=== PATIENT | female | born 1930 | race Caucasian/White ===

== ENCOUNTER 2020-09-25 14:06 | Emergency (ER) | payer MEDICARE ==
[~2020-09-25] VITALS: Ht 160 cm; Wt 60.5 kg
[~2020-09-25 14:06] MED LIST: ASPI-1009 PO; LEVO50TA8 PO; MECL-159 PO; OMEP-50 PO; PERI4TAB PO; TRAV5DRO RIGHTEYE
[2020-09-25 16:05] VITALS: BP 161/85
[2020-09-29] MEDS ORDERED: PANT40TA54 PO (10:33)
[2020-09-29] MEDS ORDERED: NYST1000 PO (10:36)
[2020-09-29] MEDS ORDERED: ONDA4TAB6 PO (11:52)
== END 2020-09-25 16:17 | disposition home or self-care (01) ==
LOC: ER 14:06
DX: M25.551 Pain in right hip (principal); M25.511 Pain in right shoulder; I25.10 Atherosclerotic heart disease of native coronary artery without angina pectoris; I10 Essential (primary) hypertension; E03.9 Hypothyroidism, unspecified; Z98.890 Other specified postprocedural states; Z60.2 Problems related to living alone; Z88.1 Allergy status to other antibiotic agents; Z88.0 Allergy status to penicillin; Z88.2 Allergy status to sulfonamides; Z88.8 Allergy status to other drugs, medicaments and biological substances; Z79.82 Long term (current) use of aspirin; Z79.899 Other long term (current) drug therapy; W05.0XXA Fall from non-moving wheelchair, initial encounter; Y93.89 Activity, other specified; Y92.89 Other specified places as the place of occurrence of the external cause; Y99.8 Other external cause status
CPT/HCPCS: 73030; 73502; 99284

== ENCOUNTER 2021-02-26 10:17 | Inpatient (IN) | payer MEDICARE ==
[~2021-02-26] VITALS: Ht 312.4 cm; Wt 56.4 kg
[~2021-02-26 10:17] MED LIST changes: -OMEP-50 PO; +ONDA4TAB6 PO; +PANT40TA54 PO
[2021-02-26] MEDS ORDERED: normal saline 1000ML IV soln IVB ONE (10:30)
--- NOTE | 2021-02-26 10:35 | NUR ---
PT FOLLOWS COMMANDS APPROPRIATLY. UNABLE TO PUFF CHEEKS OR RAISE EYEBROWS. SENSATION IN TACT, NO WEAKNESS OR ATAXIA NOTED. NO DIFFICULTY IN SPEECH NOTED, NO FACIAL DROOP NOTED.
[2021-02-26 11:00] LABS: BASOPHILS % (AUTO) 0.2 % (0-1); EOSINOPHILS % (AUTO) 0.6 % (0-6); HEMATOCRIT 44.2 % (35.0-45.0); HEMOGLOBIN 14.5 g/dl (12.0-16.0); LYMPHOCYTES # (AUTO) 0.7 X10'3 (1.1-4.8); LYMPHOCYTES % (AUTO) 13.8 % (21-51); MEAN CORPUSCULAR HEMOGLOBIN 27.4 PG (27.0-31.0); MEAN CORPUSCULAR HGB CONC 32.9 g/dL (33.0-36.5); MEAN CORPUSCULAR VOLUME 83.5 FL (78-98); MEAN PLATELET VOLUME 7.7 FL (7.4-10.4); MONOCYTES % (AUTO) 20.8 % (2-12); NEUTROPHILS # (AUTO) 3.1 X10'3 (1.8-7.7); NEUTROPHILS % (AUTO) 64.6 % (42-75); PLATELET COUNT 267 X10'3 (140-440); RED BLOOD COUNT 5.29 X10'6 (4.20-5.60); RED CELL DISTRIBUTION WIDTH 14.8 % (11.5-14.5); WHITE BLOOD COUNT 4.8 X10'3 (4.5-11.0)
[2021-02-26 11:04] LABS: PARTIAL THROMBOPLASTIN TIME 29 SECONDS (22-32)
[2021-02-26 11:05] LABS: ALANINE AMINOTRANSFERASE 16 U/L (12-78); ALBUMIN 4.6 G/DL (3.4-5.0); ALBUMIN/GLOBULIN RATIO 1.2 (1.1-1.5); ALKALINE PHOSPHATASE 94 IU/L (46-116); ANION GAP 14 (8-16); ASPARTATE AMINO TRANSFERASE 20 U/L (10-37); BILIRUBIN,TOTAL 0.6 MG/DL (0.1-1.0); BLOOD UREA NITROGEN 17 MG/DL (7-18); BUN/CREATININE RATIO 13.9 (6.6-38.0); CALCIUM 9.9 MG/DL (8.5-10.1); CHLORIDE 97 MMOL/L (99-107); CREATININE 1.22 MG/DL (0.40-0.90); GLUCOSE 93 MG/DL (70-104); POTASSIUM 4.4 MMOL/L (3.5-5.1); SODIUM 138 MMOL/L (135-145); TOTAL CARBON DIOXIDE 26.8 MMOL/L (24-32); TOTAL PROTEIN 8.6 G/DL (6.4-8.2); eGFR 42 ML/MIN
[2021-02-26 11:12] LABS: MAGNESIUM 2.7 MG/DL (1.5-2.4)
[2021-02-26] MEDS ORDERED: acetaminophen 325mg tablet PO PRN ×2 (12:15)
[2021-02-26] MEDS ORDERED: magnesium hydroxide 30ml (MOM) UD suspension PO PRN (12:15)
[2021-02-26] MEDS ORDERED: ondansetron/PF 4mg/2ml inj IV PRN (12:15)
[2021-02-26] MEDS ORDERED: mag hydrox/Alum hydrox/simeth 30ml oral suspension PO PRN (12:15)
[2021-02-26] MEDS ORDERED: morphine 2 MG/ML inj. syringe IV PRN ×2 (12:15)
[2021-02-26] MEDS ORDERED: levetiracetam inj 1,000 MG in normal saline 100ml IV soln 90 ML IV SCH (12:22)
[2021-02-26] MEDS ORDERED: levetiracetam 250mg tablet PO SCH (12:28)
[2021-02-26] MEDS ORDERED: LEVO75TA7 PO (12:47)
[2021-02-26] MEDS ORDERED: PANT-47 PO (12:48)
[2021-02-26] MEDS ORDERED: levetiracetam inj 1,000 MG in normal saline 100ml IV soln 90 ML IV ONE (13:15)
--- NOTE | 2021-02-26 13:58 | NUR ---
RONNA NELSON ([facility]) [phone], [phone]
[2021-02-26] MEDS: dextrose 5%-1/2 normal saline 1,000 ML IV SCH ×2 (14:13→22:50)
[2021-02-26] MEDS: docusate sod 100mg capsule PO SCH (19:17)
[2021-02-26] MEDS: levetiracetam 250mg tablet PO SCH (19:18)
[2021-02-27] VITALS (9 sets, daily range): BP systolic 128–184; BP diastolic 66–94
--- NOTE | 2021-02-27 06:15 | NUR ---
Received report from Jillian MISHRA Traveler.
--- NOTE | 2021-02-27 06:38 | NUR ---
Problems reprioritized. Patient report given, questions answered & plan of care reviewed with TAD Gan.
[2021-02-27 07:17] LABS: BASOPHILS % (AUTO) 0.3 % (0-1); EOSINOPHILS # (AUTO) 0.1 X10'3 (0-0.9); EOSINOPHILS % (AUTO) 1.2 % (0-6); HEMATOCRIT 41.4 % (35.0-45.0); HEMOGLOBIN 13.6 g/dl (12.0-16.0); LYMPHOCYTES % (AUTO) 18.3 % (21-51); MEAN CORPUSCULAR HEMOGLOBIN 27.6 PG (27.0-31.0); MEAN CORPUSCULAR HGB CONC 32.7 g/dL (33.0-36.5); MEAN CORPUSCULAR VOLUME 84.3 FL (78-98); MEAN PLATELET VOLUME 8.1 FL (7.4-10.4); MONOCYTES # (AUTO) 1.5 X10'3 (0-0.9); MONOCYTES % (AUTO) 27.4 % (2-12); NEUTROPHILS # (AUTO) 2.8 X10'3 (1.8-7.7); NEUTROPHILS % (AUTO) 52.8 % (42-75); PLATELET COUNT 232 X10'3 (140-440); RED BLOOD COUNT 4.92 X10'6 (4.20-5.60); RED CELL DISTRIBUTION WIDTH 14.9 % (11.5-14.5); WHITE BLOOD COUNT 5.3 X10'3 (4.5-11.0)
[2021-02-27 07:37] LABS: ALBUMIN 3.4 G/DL (3.4-5.0); ANION GAP 11 (8-16); BLOOD UREA NITROGEN 16 MG/DL (7-18); BUN/CREATININE RATIO 16.8 (6.6-38.0); CHLORIDE 100 MMOL/L (99-107); CREATININE 0.95 MG/DL (0.40-0.90); GLUCOSE 79 MG/DL (70-104); POTASSIUM 4.4 MMOL/L (3.5-5.1); SODIUM 133 MMOL/L (135-145); TOTAL CARBON DIOXIDE 21.8 MMOL/L (24-32); eGFR 56 ML/MIN
[2021-02-27] MEDS: levetiracetam 250mg tablet PO SCH ×2 (08:08→20:14)
[2021-02-27] MEDS: docusate sod 100mg capsule PO SCH ×2 (08:08→20:15)
[2021-02-27] MEDS ORDERED: LEVE250T PO (08:51)
[2021-02-27 09:07] LABS: TOTAL CELLS COUNTED 100
[2021-02-27 09:08] LABS: PLATELET ESTIMATE NORMAL
--- NOTE | 2021-02-27 11:47 | NUR ---
wrong assessment on patient- mv
--- NOTE | 2021-02-27 13:04 | NUR ---
PAGER ID: [phone] MESSAGE: Poppy Robbins [id number]-Pt wants to stay one more day, could I restart her on fluids? she is eating about 30% of her food. NS? Daughter bringing her dentures. Could we also give her home meds for HTN? 165/79 HR 78 RR 14.Thank you. Elvia [facility] [id number]
--- NOTE | 2021-02-27 18:47 | NUR ---
Problems reprioritized. Patient report given, questions answered & plan of care reviewed with Jose Luis MISHRA Traveler.
[2021-02-27] MEDS: meclizine 12.5mg tablet PO SCH (20:13)
[2021-02-27] MEDS ORDERED: latanoprost 0.005% 2.5ml ophthalmic drops RIGHTEYE SCH (21:00)
--- NOTE | 2021-02-28 01:00 | NUR ---
I have received report from Gely Amaya RN and had the opportunity to ask questions and assume patient care.
--- NOTE | 2021-02-28 01:00 | NUR ---
Received patient report from Jose Luis Sánchez RN. Patients resting in no apparent distress. Will continue to monitor.
[2021-02-28 02:00] VITALS: BP 180/88
--- NOTE | 2021-02-28 06:17 | NUR ---
Problems reprioritized. Patient report given, questions answered & plan of care reviewed with TAD Pollack.
[2021-02-28 06:30] VITALS: BP 140/81
--- NOTE | 2021-02-28 06:30 | NUR ---
Patient in room PCU 3012. I have received report from TAD Hawk & TAD Birch and had the opportunity to ask questions and assume patient care.
[2021-02-28 07:02] LABS: BASOPHILS % (AUTO) 0.6 % (0-1); EOSINOPHILS # (AUTO) 0.1 X10'3 (0-0.9); EOSINOPHILS % (AUTO) 1.1 % (0-6); HEMATOCRIT 41.8 % (35.0-45.0); HEMOGLOBIN 14.1 g/dl (12.0-16.0); LYMPHOCYTES # (AUTO) 1.2 X10'3 (1.1-4.8); LYMPHOCYTES % (AUTO) 20.2 % (21-51); MEAN CORPUSCULAR HEMOGLOBIN 27.9 PG (27.0-31.0); MEAN CORPUSCULAR HGB CONC 33.7 g/dL (33.0-36.5); MEAN CORPUSCULAR VOLUME 82.7 FL (78-98); MEAN PLATELET VOLUME 8.2 FL (7.4-10.4); MONOCYTES # (AUTO) 1.5 X10'3 (0-0.9); MONOCYTES % (AUTO) 26.1 % (2-12); PLATELET COUNT 274 X10'3 (140-440); RED BLOOD COUNT 5.06 X10'6 (4.20-5.60); RED CELL DISTRIBUTION WIDTH 14.6 % (11.5-14.5); WHITE BLOOD COUNT 5.8 X10'3 (4.5-11.0)
[2021-02-28 07:26] LABS: ALBUMIN 4.4 G/DL (3.4-5.0); ANION GAP 12 (8-16); BLOOD UREA NITROGEN 12 MG/DL (7-18); BUN/CREATININE RATIO 11.1 (6.6-38.0); CALCIUM 9.6 MG/DL (8.5-10.1); CHLORIDE 98 MMOL/L (99-107); CREATININE 1.08 MG/DL (0.40-0.90); GLUCOSE 84 MG/DL (70-104); SODIUM 136 MMOL/L (135-145); eGFR 48 ML/MIN
[2021-02-28] MEDS ORDERED: pantoprazole 40mg Tablet.DR PO SCH (08:00)
[2021-02-28] MEDS ORDERED: levoTHYROXINE 75mcg tablet PO SCH (08:00)
[2021-02-28] MEDS ORDERED: KEP500T PO (09:27)
[2021-02-28] MEDS ORDERED: ALPR-623 PO (09:27)
[2021-02-28] MEDS ORDERED: levetiracetam 250mg tablet PO SCH (09:50)
[2021-02-28] MEDS: PERINDOPRIL ERBUMINE 4 MG PO SCH ×2 (10:49→10:52)
[2021-02-28] MEDS: docusate sod 100mg capsule PO SCH (10:52)
[2021-02-28] MEDS: meclizine 12.5mg tablet PO SCH (10:52)
[2021-02-28 11:00] VITALS: BP 145/70
[2021-02-28 15:00] VITALS: BP 134/64
--- NOTE | 2021-02-28 16:05 | NUR ---
DC inst provided to pt & pt's granddaughter, Vickie. IV DC'd, tip intact. All belongings sent w/pt. WC to vehicle.
== END 2021-02-28 16:00 | disposition home or self-care (01) | DRG 101 ==
LOC: ER 10:18 → ED HOLD 12:11 → UNDOADMIN 12:11 → ED HOLD 12:16 → PCU 3S 23:58 → ED HOLD 23:58
PROVIDERS: ADMIT Internal Medicine; ATTEND Internal Medicine
DX: R56.9 Unspecified convulsions (principal); N17.9 Acute kidney failure, unspecified; E86.0 Dehydration; I12.9 Hypertensive chronic kidney disease with stage 1 through stage 4 chronic kidney disease, or unspecified chronic kidney disease; E03.9 Hypothyroidism, unspecified; N18.9 Chronic kidney disease, unspecified; Z20.822 Contact with and (suspected) exposure to COVID-19; I25.10 Atherosclerotic heart disease of native coronary artery without angina pectoris; K21.9 Gastro-esophageal reflux disease without esophagitis; Z79.899 Other long term (current) drug therapy; Z79.82 Long term (current) use of aspirin; Z83.3 Family history of diabetes mellitus; Z95.1 Presence of aortocoronary bypass graft; Z95.2 Presence of prosthetic heart valve; Z88.0 Allergy status to penicillin; Z88.2 Allergy status to sulfonamides; Z88.8 Allergy status to other drugs, medicaments and biological substances
CPT/HCPCS: 36415; 70450; 70551; 71045; 80048; 80053; 82948; 83735; 83880; 84484; 85007; 85025; 85610; 85730; 87081; 87635; 93005; 99285; G0378; J1953; J7030; J8597